=== PATIENT | female | born 1975 | race Caucasian/White ===

== ENCOUNTER 2022-05-07 10:24 | Inpatient (IN) ==
[2022-05-07] MEDS ORDERED: ONDANSETRON 4 MG/2 ML VIAL IV ONE ×2 (11:23→14:53)
--- NOTE | 2022-05-07 11:25 | Emergency Department Note ---
HPI General Chief complaint: Wound/Laceration Stated complaint: leg wound Time Seen by Provider: 05/07/22 11:23 Source: patient Mode of arrival: wheelchair History of Present Illness HPI Narrative: Narrative: Patient is a 46-year-old female with no significant past medical history presents to the emergency department due to pain, swelling, and redness of her right lower extremity. Patient states that approximately 2 weeks ago she was hit by a softball in her right leg. She states that since that time she has had worsening pain and was seen at [facility]. She states that 4 days ago there was concern for infection, so she was placed on Bactrim. She states that she was then seen again and was given a dose of ceftriaxone and then placed on Keflex. She states that she has been on both medications since that time. She states that she had worsening pain and development of swelling in the area, so was seen at [facility] again. Patient was sent here due to concern for worsening despite outpatient therapy. She endorses worsening swelling of the whole right lower leg and not just around the site of erythema. She endorses pain just around the site of erythema. She denies any other symptoms at this time. Related Data Home Medications Medication Instructions Recorded Confirmed folic acid 400 mcg tablet 0.4 mg PO QDAY 11/01/21 03/27/22 melatonin 10 mg capsule 10 mg PO PRN 11/01/21 03/27/22 zolpidem 5 mg tablet (Ambien) 5 mg PO PRN 11/01/21 03/27/22 ascorbic acid (vitamin C) PO QDAY 11/05/21 03/27/22 cholecalciferol (vitamin D3) PO QDAY 11/05/21 03/27/22 hydroxyzine HCl 25 mg tablet 12.5 - 50 mg PO QDAY PRN 11/05/21 03/27/22 mecobalamin (vitamin B12) PO QDAY 11/05/21 03/27/22 Previous Rx's Medication Instructions Recorded ondansetron 4 mg disintegrating 4 mg PO Q6H PRN nausea and 11/05/21 tablet vomiting #30 tabs sumatriptan 20 mg/actuation nasal 20 mg intranasal ONCE PRN migraine 11/05/21 spray headache #6 ea estradiol 0.1 mg/24 hr semiweekly 1 patch transdermal .1 PATCH 2X A 01/10/22 transdermal patch WEEK #8 patches Allergies Allergy/AdvReac Type Severity Reaction Status Date / Time ibuprofen Allergy Unknown Hives, Verified 03/27/22 15:44 Swelling latex Allergy Unknown Hives, Rash Verified 03/27/22 15:44 salicylic acid Allergy Unknown Unknown Verified 03/27/22 15:44 [From Compound W] Review of Systems ROS ROS Narrative: Narrative: Constitutional: Denies fever or weakness Eyes: Denies eye pain or vision change ENT ED: Denies throat pain, hearing loss or rhinorrhea Cardiovascular: Denies chest pain or edema Respiratory: Denies shortness of breath or cough Gastrointestinal: Denies abdominal pain, nausea, vomiting, diarrhea, constipation, hematochezia or melena Musculoskeletal: Denies back pain or myalgia Integumentary: Reports change in color and other (Swelling at site of redness); Denies rash Neurological: Denies headache, weakness, numbness, confusion, abnormal gait or dizziness Endocrine: Denies fatigue or polyuria Hematological/Lymphatic: Denies easy bleeding or easy bruising [facility] Narrative Patient History Narrative: Narrative: Medical/Surgical/Family History All Active Problems (Updated 05/07/22 @ 16:54 by Chris Rossi MD) Cellulitis (Acute) Heat exhaustion (Acute) Excessive vitamin B12 intake (Acute) Elevated liver enzymes (Acute) Low blood pressure reading (Chronic) Medication monitoring encounter (Chronic) Hormone replacement therapy (Chronic) Insomnia (Chronic) History of total hysterectomy (Chronic) History of gastric bypass (Chronic ~2019) Migraines (Chronic) Gastroparesis (Chronic) Osteoarthritis of knees, bilateral (Chronic) Encounter for examination required by Department of Transportation (DOT) (Chronic) Medical History Encounter for examination required by Department of Transportation (DOT) Gastroparesis Migraines Osteoarthritis of knees, bilateral Surgical History History of arthroscopy of left knee 2020, 2018, 2016 History of arthroscopy of right knee (~2015) History of endoscopy (~2019) Upper/Lower History of endoscopy (~2015) Lower History of gastric bypass (~2019) History of laparoscopic cholecystectomy History of total hysterectomy [address] Celine Carcamo Family History Other No pertinent family history Social History Smoking Status: Never smoker Alcohol Intake Frequency: holiday/special occasion only Substance Use: does not use Exam Narrative Narrative: Narrative: General General appearance: Present alert and in no apparent distress; Absent anxious or appears intoxicated Head Head: Present atraumatic and normocephalic Eye Eye: Present PERRL and EOMI; Absent scleral icterus ENT ENT: Present mucous membranes moist; Absent nasal congestion Neck Neck: Present full ROM; Absent tenderness Chest Chest: Present normal inspection and symmetric chest wall rise; Absent tenderness Respiratory Respiratory: Present normal lung sounds bilaterally; Absent respiratory distress or accessory muscle use Cardiovascular Cardiovascular: Present regular rate, normal rhythm and normal heart sounds Adbominal Abdominal: Present soft and normal bowel sounds; Absent distention Extremities Extremities: Present normal inspection, full ROM and tenderness (At site of erythema and swelling of right lower extremity) Back Back: Present normal inspection and full ROM; Absent tenderness Neurological Neurological: Present alert and oriented X3 Psychiatric Psychiatric: Present normal affect and normal mood Skin Skin: Present warm (WNL), dry and erythema (Approximately 10 x 15 cm area on right lower extremity) Course Vital Signs Vital signs: Vital Signs Temperature 98.1 F 05/07/22 10:27 Pulse Rate 74 05/07/22 10:27 Respiratory Rate 18 05/07/22 10:27 Blood Pressure 114/78 05/07/22 10:27 Pulse Oximetry (%) 96 05/07/22 10:27 Oxygen Delivery Method 05/07/22 10:27 Temperature 98.1 F 05/07/22 10:27 Pulse Rate 69 05/07/22 16:01 Respiratory Rate 18 05/07/22 10:27 Blood Pressure 87/41 05/07/22 16:01 Pulse Oximetry (%) 100 05/07/22 16:01 Oxygen Delivery Method 05/07/22 10:27 [facility] MDM Narrative Medical decision making narrative: Narrative: Patient is a 46-year-old female who presents to the emergency department due to concern for cellulitis not responsive to outpatient antibiotic therapy. Patient has ultrasound findings concerning for hematoma. With surrounding erythema and warmth of skin there is concern for infection as well. I attempted to aspirate, but was able to obtain very little aspirate that appeared to be bloody alone. Patient's labs are reassuring. I spoke to Dr. Mark due to concern for infected hematoma. He asked that I speak to the hospitalist team given concern for worsening cellulitis and failure of outpatient therapy. I spoke to Dr. Banuelos who did not feel like a medicine admit given absence of any lab findings was warranted. He asked that I speak to Dr. Mark about outpatient surgery. I spoke to Dr. Mark again who agreed to see patient and evaluate. Dr. Mark saw and evaluated patient and agrees that she needs to be admitted, and states that he will admit patient. Lab Data Result diagrams: 05/07/22 11:42 Labs: Lab Results 05/07/22 05/07/22 05/07/22 Range/Units 11:42 11:42 11:57 WBC 7.0 (4.5-11.0) K/mcL RBC 4.57 (3.59-5.38) M/mcL Hgb 13.6 (11.2-15.7) g/dL Hct 41.3 (34.1-44.9) % POC Hct 44.0 (36-48) MCV 90.4 (80.0-100.0) fL MCH 29.8 (26.0-34.0) pg MCHC 32.9 (31.0-36.0) g/dL RDW 12.7 (11.5-14.5) % Plt Count 299 (140-440) K/mcL MPV 11.1 H (7.4-10.4) fL Immature Gran % (Auto) 0.3 (0.0-0.5) % Neut % (Auto) 73.7 (38.0-78.0) % Lymph % (Auto) 14.5 L (15.5-49.0) % Harney % (Auto) 8.9 (1.0-12.0) % Eos % (Auto) 1.9 (0.0-7.0) % Baso % (Auto) 0.7 (0.0-2.0) % Lymph # (Auto) 1.01 L (1.50-4.80) K/mcL Harney # (Auto) 0.62 (0.10-0.90) K/mcL Eos # (Auto) 0.13 (0.00-0.70) K/mcL Baso # (Auto) 0.05 (0.00-0.30) K/mcL Immature Gran # 0.02 (0.00-0.05) K/mcl Absolute Neutrophils 5.15 (1.80-8.00) K/mcL POC Sodium 138 (133-145) POC Potassium 4.0 (3.3-5.1) POC Chloride 100 (96-108) POC Total CO2 28.0 (22-30) POC BUN 12 (6-20) POC Creatinine 1.1 (0.6-1.2) POC Glucose 96 (70-105) POC WB Ioniz Calcium 1.21 (1.16-1.32) Procalcitonin 0.05 (<0.10) ng/mL Discharge Plan Patient/Caregiver Discharge Instructions Pt seen by FABRIC WORKER/PA only: No Clinical Impression: Cellulitis Instructions: Cellulitis (DC) Patient Disposition: Xfer As Inpt ([facility]) Follow up with: Radha Patrick ARNP [Primary Care Provider] - Prescriptions: No Action estradiol 0.1 mg/24 hr patch semiweekly 1 patch transdermal .1 PATCH 2X A WEEK Qty: 8 4RF zolpidem [Ambien] 5 mg tablet 5 mg PO PRN folic acid 400 mcg tablet 0.4 mg PO QDAY melatonin 10 mg capsule 10 mg PO PRN ascorbic acid (vitamin C) PO QDAY Rx Instructions: 125mcg dropperful cholecalciferol (vitamin D3) PO QDAY Rx Instructions: 125mcg dropperful mecobalamin (vitamin B12) PO QDAY Rx Instructions: 125mcg dropperful hydroxyzine HCl 25 mg tablet 12.5 - 50 mg PO QDAY PRN Rx Instructions: for anxiety and insomnia sumatriptan 20 mg/actuation spray,non-aerosol 20 mg intranasal ONCE PRN (Reason: migraine headache) Qty: 6 2RF Rx Instructions: administer into one nostril as a single dose ondansetron 4 mg tablet,disintegrating 4 mg PO Q6H PRN (Reason: nausea and vomiting) Qty: 30 2RF
[2022-05-07 12:03] LABS: POC Calcium, Ionized 1.21 (1.16-1.32); POC Creatinine 1.1 (0.6-1.2)
--- NOTE | 2022-05-07 13:18 | Ultrasound Report ---
History: Hit by a softball in the right lower leg two weeks ago with right leg pain and swelling FINDINGS: There is normal augmentation and compressibility of the deep veins and saphenous vein from the groin through the calf. Doppler shows normal waveform patterns. Anteriorly in the mid portillo beneath the skin lesion there is a complex irregularly shaped collection of fluid which measures 1.5 x 4.9 x 5.9 cm. It contains internal septations and some echogenic debris. Doppler shows the peripheral border is not hypervascular. Incidentally noted is a lymph node in the right groin with benign features which measures 0.8 x 2.2 x 3.3 cm. IMPRESSION: No evidence of deep venous thrombosis Moderate size subcutaneous fluid collection in the portillo. This is probably a hematoma. An infected hematoma cannot be ruled out but there is no hyperemia. Dr. Rossi was called with the report Interpreted and Authenticated by: Rah Le 05/07/22
[2022-05-07] MEDS ORDERED: VANCOMYCIN 1,500 MG in 0.9 % SODIUM CHLORIDE 500 ML IV ONE (13:43)
[2022-05-07 14:54] LABS: Basophils # (Auto) 0.05 K/mcL (0.00-0.30); Basophils % (Auto) 0.7 % (0.0-2.0); Eosinophils # (Auto) 0.13 K/mcL (0.00-0.70); Eosinophils % (Auto) 1.9 % (0.0-7.0); Hematocrit 41.3 % (34.1-44.9); Hemoglobin 13.6 g/dL (11.2-15.7); Lymphocytes # (Auto) 1.01 K/mcL (1.50-4.80); Lymphocytes % (Auto) 14.5 % (15.5-49.0); Mean Cell Volume 90.4 fL (80.0-100.0); Mean Corpuscular HGB Conc 32.9 g/dL (31.0-36.0); Mean Platelet Volume 11.1 fL (7.4-10.4); Monocytes # (Auto) 0.62 K/mcL (0.10-0.90); Monocytes % (Auto) 8.9 % (1.0-12.0); Neutrophils % (Auto) 73.7 % (38.0-78.0); Platelet Count 299 K/mcL (140-440); RBC 4.57 M/mcL (3.59-5.38); Red Cell Distribution Width 12.7 % (11.5-14.5)
--- NOTE | 2022-05-07 17:01 | General Surgery Consult Note ---
HPI Data of Consult Patient: new to practice Consult date: 05/07/22 Requesting physician: Chris Rossi Primary Care Provider: JOSSE Bedlola Consult Narrative Chief complaint: Right Pretibial Hematoma Reason for consult: Above History of present illness: Ingrid is seen in consultation tonight several weeks out now from a Trauma to the Right Pretibial Region while playing Softball. She immediately developed pain and swelling and underwent initial plain films that per her did not show any evidence of fracture. She began to develop increasing pain in the area and increasing redness. She was initially started on oral ABs 4 days about but without improvement and the ABs were changed after roughly 48 hours or so. She is back today with no real improvement. There has not been significant draina ge. An US demonstrated findings consistent with hematoma and attempts at aspiration were significant for only a few cc's of benign appearing blood - there was no noted purulence. cc:: CC: Review of Systems Review of systems: ROS ROS Narrative: Narrative: Constitutional: Denies fever or weakness Eyes: Denies eye pain or vision change ENT ED: Denies throat pain, hearing loss or rhinorrhea Cardiovascular: Denies chest pain or edema Respiratory: Denies shortness of breath or cough Gastrointestinal: Denies abdominal pain, nausea, vomiting, diarrhea, cons tipation, hematochezia or melena Musculoskeletal: Denies back pain or myalgia Integumentary: Reports change in color and other (Swelling at site of redness); Denies rash Neurological: Denies headache, weakness, numbness, confusion, abnormal gait or dizziness Endocrine: Denies fatigue or polyuria Hematological/Lymphatic: Denies easy bleeding or easy bruising [facility] Narrative Patient History Narrative: Narrative: Medical/Surgical/Family History All Active Problems(Updated 05/07/22 @ 16:54 by Chris Rossi MD) Cellulitis (Acute) Heat exhaustion (Acute) Excessive vitamin B12 intake (Acute) Elevated liver enzymes (Acute) Low blood pressure reading (Chronic) Medication monitoring encounter (Chronic) Hormone replacement therapy (Chronic) Insomnia (Chronic) History of total hysterectomy (Chronic) History of gastric bypass (Chronic ~2019) Migraines (Chronic) Gastroparesis (Chronic) Osteoarthritis of knees, bilateral (Chronic) Encounter for examination required by Department of Transportation (DOT) (Chronic) Medical History Encounter for examination required by Department of Transportation (DOT) Gastroparesis Migraines Osteoarthritis of knees, bilateral Surgical History History of arthroscopy of left knee 2020, 2018, 2016History of arthroscopy of right knee (~2015) History of endoscopy (~2019) Upper/LowerHistory of endoscopy (~2015) LowerHistory of gastric bypass (~2019) History of laparoscopic cholecystectomy History of total hysterectomy [address] Celine Carcamo Family History Other No pertinent family history PFSH PFSH All Active Problems (Updated 05/07/22 @ 16:54 by Chris Rossi MD) Cellulitis (Acute) Heat exhaustion (Acute) Excessive vitamin B12 intake (Acute) Elevated liver enzymes (Acute) Low blood pressure reading (Chronic) Medication monitoring encounter (Chronic) Hormone replacement therapy (Chronic) Insomnia (Chronic) History of total hysterectomy (Chronic) History of gastric bypass (Chronic ~2019) Migraines (Chronic) Gastroparesis (Chronic) Osteoarthritis of knees, bilateral (Chronic) Encounter for examination required by Department of Transportation (DOT) (Chronic) Medical History Encounter for examination required by Department of Transportation (DOT) Gastroparesis Migraines Osteoarthritis of knees, bilateral Surgical History History of arthroscopy of left knee 2020, 2018, 2016 History of arthroscopy of right knee (~2015) History of endoscopy (~2019) Upper/Lower History of endoscopy (~2015) Lower History of gastric bypass (~2019) History of laparoscopic cholecystectomy History of total hysterectomy [address] Celine Carcamo Family History Other No pertinent family history Social History marital status: occupational status: employed occupation: [employer] smoking status: Never smoker alcohol intake frequency: holiday/special occasion only substance use type: does not use MEDS/ALLERGIES Home Medications and Allergies Home Medications Medication Instructions Recorded Confirmed Type folic acid 400 mcg tablet 0.4 mg PO QDAY 11/01/21 03/27/22 History melatonin 10 mg capsule 10 mg PO PRN 11/01/21 03/27/22 History zolpidem 5 mg tablet (Ambien) 5 mg PO PRN 11/01/21 03/27/22 History ascorbic acid (vitamin C) PO QDAY 11/05/21 03/27/22 History cholecalciferol (vitamin D3) PO QDAY 11/05/21 03/27/22 History hydroxyzine HCl 25 mg tablet 12.5 - 50 mg PO QDAY PRN 11/05/21 03/27/22 History mecobalamin (vitamin B12) PO QDAY 11/05/21 03/27/22 History ondansetron 4 mg disintegrating 4 mg PO Q6H PRN nausea and 11/05/21 03/27/22 Rx tablet vomiting #30 tabs sumatriptan 20 mg/actuation nasal 20 mg intranasal ONCE PRN migraine 11/05/21 03/27/22 Rx spray headache #6 ea estradiol 0.1 mg/24 hr semiweekly 1 patch transdermal .1 PATCH 2X A 01/10/22 03/27/22 Rx transdermal patch WEEK #8 patches Allergies Allergy/AdvReac Type Severity Reaction Status Date / Time ibuprofen Allergy Unknown Hives, Verified 03/27/22 15:44 Swelling latex Allergy Unknown Hives, Rash Verified 03/27/22 15:44 salicylic acid Allergy Unknown Unknown Verified 03/27/22 15:44 [From Compound W] Physical Examination Vital Signs Vital signs: Temp Pulse Resp BP Pulse Ox O2 Del Method 98.1 F 69 18 87/41 100 05/07/22 10:27 05/07/22 16:01 05/07/22 10:27 05/07/22 16:01 05/07/22 16:01 05/07/22 10:27 General physical appearance General physical exam: other (looks non toxic ) Eyes Eye exam: normal ocular movement; negative icteric ENT ENT exam: normal pinna and normal nares Head Head exam IM: Present atraumatic, normal inspection and normocephalic Neck Neck exam: trachea midline, no lymphadenopathy and other Cardiovascular Cardiovascular exam IM: Present normal rate and rhythm and RRR Respiratory Respiratory exam: normal respiratory effort Abdomen Abdomen: Present soft and non tender Integumentary Integumentary: Present other (normal appearing intact skin ) Neurologic Neurologic: Present other (grossly intact) Musculoskeletal Musculoskeletal: Present other (in the Right Pretibial region there is a 3-4 cm centralized area of swelling with patches of overlying dermal necrosis and some surrounding erythema, there is no drainage and the area is minimally tender ) Results Labs Result diagrams: 05/07/22 11:42 Labs: Abnormal lab results 05/07/22 Range/Units 11:42 MPV 11.1 H (7.4-10.4) fL Lymph % (Auto) 14.5 L (15.5-49.0) % Lymph # (Auto) 1.01 L (1.50-4.80) K/mcL All other labs normal. A/P Assessment and plan (1) Cellulitis: Assessment and plan: Right Pretibial Hematoma with overlying skin breakdown and surrounding cellulitis The area looks like it will require operative debridement to drain the hematoma, remove any areas of necrotic tissue, obtain cultures and pursue open wound care Issues are discussed at length and she is agreeable to the plan for admission tonight Risks, benefits, potential complications and alternative treatment options are all reviewed and discussed at length Status: Acute Time Spent With Patient Time: Total time spent is greater than 50% in coordination of care (as documented) at patient's floor/unit and/or counseling patient:
[2022-05-07] MEDS: DEXTROSE 5%-1/2NS 1,000 ML IV SCH (20:25)
[2022-05-07] MEDS: 0.9 % SODIUM CHLORIDE 10 ML SYRINGE IV SCH (20:26)
[2022-05-07] MEDS: DOCUSATE SODIUM 100 MG CAPSULE PO SCH (20:26)
[2022-05-07] MEDS: SENNOSIDES 1 TABLET PO SCH (20:26)
[2022-05-07] MEDS: oxyCODONE HCL 5 MG TABLET PO PRN (20:26)
[2022-05-07] MEDS: PIPERACILLIN SODIUM/TAZOBACTAM 3.375 GM in DEXTROSE 5% IN WATER 50 ML IV SCH (20:56)
[2022-05-08] MEDS: oxyCODONE HCL 5 MG TABLET PO PRN ×3 (00:57→21:21)
[2022-05-08] MEDS: PIPERACILLIN SODIUM/TAZOBACTAM 3.375 GM in DEXTROSE 5% IN WATER 50 ML IV SCH ×4 (01:00→18:01)
[2022-05-08] MEDS: ONDANSETRON 4 MG/2 ML VIAL IV PRN ×3 (01:34→21:31)
[2022-05-08] MEDS: DEXTROSE 5%-1/2NS 1,000 ML IV SCH ×4 (02:50→15:16)
[2022-05-08] MEDS ORDERED: IPRATROPIUM/ALBUTEROL 3 ML AMPUL.NEB NEB PRN ×2 (05:00→11:17)
[2022-05-08] MEDS ORDERED: SCOPOLAMINE 1 PATCH PATCH TOPICAL PRN (05:00)
[2022-05-08 06:45] LABS: Hematocrit 36.4 % (34.1-44.9); Hemoglobin 12.1 g/dL (11.2-15.7); Mean Cell Volume 89.4 fL (80.0-100.0); Mean Corpuscular HGB Conc 33.2 g/dL (31.0-36.0); Mean Platelet Volume 10.9 fL (7.4-10.4); Platelet Count 271 K/mcL (140-440); RBC 4.07 M/mcL (3.59-5.38); Red Cell Distribution Width 12.6 % (11.5-14.5)
[2022-05-08 07:18] LABS: Blood Urea Nitrogen 12 mg/dL (6-20); Calcium 8.7 mg/dL (8.6-10.4); Carbon Dioxide 28 mmol/L (22-30); Chloride 103 mmol/L (96-108); Glomerular Filtration Rate 67; Glucose 108 mg/dL (70-105)
[2022-05-08] MEDS: DOCUSATE SODIUM 100 MG CAPSULE PO SCH ×2 (09:00→21:20)
[2022-05-08] MEDS: 0.9 % SODIUM CHLORIDE 10 ML SYRINGE IV SCH ×3 (09:46→21:04)
[2022-05-08] MEDS ORDERED: LIDOCAINE HCL/PF 100 MG/5 ML SYRINGE IV ONE (10:56)
[2022-05-08] MEDS ORDERED: MAGNESIUM SULFATE 2 GM/50 ML BAG IV ONE (10:56)
[2022-05-08] MEDS ORDERED: FAMOTIDINE/PF 20 MG/2 ML VIAL IV ONE (10:56)
[2022-05-08] MEDS ORDERED: MIDAZOLAM 2 MG/2 ML VIAL ONE (10:56)
[2022-05-08] MEDS ORDERED: ePHEDrine 50 MG/5 ML SYRINGE (ANEST) IV ONE (10:56)
[2022-05-08] MEDS ORDERED: GLYCOPYRROLATE 0.2 MG/ML VIAL IV ONE (10:56)
[2022-05-08] MEDS ORDERED: KETAMINE 50 MG/ML Syringe (ANEST) IV ONE (10:56)
[2022-05-08] MEDS ORDERED: ONDANSETRON 4 MG/2 ML VIAL ONE (10:56)
[2022-05-08] MEDS ORDERED: KETOROLAC 30 MG/ML VIAL ONE (10:56)
[2022-05-08] MEDS ORDERED: PROPOFOL 200 MG/20 ML VIAL IV ONE (10:56)
[2022-05-08] MEDS ORDERED: METHOCARBAMOL 1,000 MG/10 ML VIAL IV PRN (11:17)
[2022-05-08] MEDS ORDERED: diphenhydrAMINE 50 MG/ML VIAL IV PRN (11:17)
[2022-05-08] MEDS ORDERED: NALOXONE HCL 0.4 MG/ML VIAL IV PRN (11:17)
[2022-05-08] MEDS ORDERED: LACTATED RINGERS 250 ML IV PRN (11:17)
[2022-05-08] MEDS ORDERED: FLUMAZENIL 0.1 MG/ML ML IV PRN (11:17)
[2022-05-08] MEDS ORDERED: ACETAMINOPHEN 1,000 MG/100 ML BAG IV ONE (11:17)
[2022-05-08] MEDS ORDERED: fentaNYL 100 MCG/2 ML VIAL IV PRN (11:17)
[2022-05-08] MEDS ORDERED: PROMETHAZINE 25 MG/ML VIAL IV PRN (11:17)
[2022-05-08] MEDS ORDERED: METOCLOPRAMIDE 10 MG/2 ML VIAL IV PRN (11:17)
[2022-05-08] MEDS ORDERED: MEPERIDINE 50 MG/ML VIAL IM PRN (11:17)
[2022-05-08] MEDS ORDERED: MEPERIDINE 25 MG/ML VIAL IV PRN (11:17)
[2022-05-08] MEDS ORDERED: ATROPINE SULFATE 0.4 MG/ML VIAL IV PRN (11:17)
[2022-05-08] MEDS ORDERED: PROMETHAZINE 25 MG/ML VIAL IM PRN (11:17)
[2022-05-08] MEDS ORDERED: ePHEDrine 50 MG/ML AMPUL IV PRN (11:17)
[2022-05-08] MEDS ORDERED: LACTATED RINGERS 1,000 ML IV SCH (11:30)
--- NOTE | 2022-05-08 11:34 | Brief Operative Note ---
Brief Operative Note Date of procedure: 05/08/22 Pre-op diagnosis: Infected Right Pretibial Hematoma with overlying Dermal Necr osis Post-op diagnosis: same Procedure: Evacuation Infected Right Pretibial Hematoma with Incision, Drainage and Open Debridement Grafts/Implants: No Anesthesia: GETA Findings: Moderate Sized Infected Right Pretibial Hematoma with overlying Dermal Necrosis Complications: none Surgeon: Jt Mark Estimated blood loss (cc): 5 Specimens Removed/Pathology: other (Fluid For Gram Stain and Culture, Overlying Necrotic Skin to pathology ) Condition: stable Disposition: PACU
[2022-05-08] MEDS: ACETAMINOPHEN 325 MG TABLET PO PRN (14:31)
[2022-05-08] MEDS: SENNOSIDES 1 TABLET PO SCH (21:21)
[2022-05-09] MEDS: PIPERACILLIN SODIUM/TAZOBACTAM 3.375 GM in DEXTROSE 5% IN WATER 50 ML IV SCH ×4 (00:11→18:04)
[2022-05-09] MEDS: DEXTROSE 5%-1/2NS 1,000 ML IV SCH (03:27)
[2022-05-09] MEDS: oxyCODONE HCL 5 MG TABLET PO PRN ×3 (03:27→21:36)
[2022-05-09] MEDS: 0.9 % SODIUM CHLORIDE 10 ML SYRINGE IV SCH ×3 (05:34→21:37)
[2022-05-09] MEDS: ACETAMINOPHEN 325 MG TABLET PO PRN (07:39)
[2022-05-09] MEDS: ONDANSETRON 4 MG/2 ML VIAL IV PRN (07:39)
[2022-05-09] MEDS: DOCUSATE SODIUM 100 MG CAPSULE PO SCH ×2 (09:08→21:28)
[2022-05-09] MEDS: FOLIC ACID 1 MG TABLET PO SCH (09:09)
[2022-05-09] MEDS: HYDROmorphone 0.5 MG/0.5 ML SYRINGE IV PRN ×2 (13:49→18:03)
[2022-05-09] MEDS: SENNOSIDES 1 TABLET PO SCH (21:28)
[2022-05-10] MEDS: HYDROmorphone 0.5 MG/0.5 ML SYRINGE IV PRN (00:55)
[2022-05-10] MEDS: PIPERACILLIN SODIUM/TAZOBACTAM 3.375 GM in DEXTROSE 5% IN WATER 50 ML IV SCH ×3 (00:59→12:27)
[2022-05-10] MEDS: 0.9 % SODIUM CHLORIDE 10 ML SYRINGE IV SCH ×2 (05:35→14:12)
[2022-05-10] MEDS: FOLIC ACID 1 MG TABLET PO SCH (08:44)
[2022-05-10] MEDS: DOCUSATE SODIUM 100 MG CAPSULE PO SCH (08:50)
--- NOTE | 2022-05-10 08:55 | General Surgery Progress Note ---
SUBJECTIVE Subjective Patient information: Note initiated : 05/10/22 at 8:52 am Service Date, if different from initiated Date: [05/09/22 @ 1155am] Patient: Ingrid Belcher 46 y/o F admitted on 05/07/22 for leg wound. Chief Complaint: [] Wound check and dressing change. Feels well, minimal pain, discussing Home Wound VAC which she would prefer Constitutional Vitals: Vital Signs Temp Pulse Resp BP Pulse Ox O2 Del Method O2 Flow Rate 98.7 F 70 16 88/54 94 6 05/10/22 07:26 05/09/22 18:02 05/10/22 07:26 05/10/22 07:26 05/10/22 07:26 05/10/22 07:05/08/22 12:07 Period Temp Pulse Resp BP Sys/Pruett Pulse Ox O2 Del Method O2 Flow Rate Last 24 Hr 98.0 F-98.7 F 66-70 16 88-106/54-59 94-96 Room Air-Room Air Intake and Output 05/09/22 05/10/22 05/10/22 21:59 05:59 13:59 Intake Total 790 530 50 Output Total 1000 1250 Balance -210 -720 50 Weight 164 lb Intake & Output: Intake & Output 05/09/22 05/10/22 05/10/22 21:59 05:59 13:59 Intake Total 790 530 50 Output Total 1000 1250 Balance -210 -720 50 Weight 164 lb Intake: IV 50 50 50 Zosyn 3.375 gm In Dextrose 5% 50 50 50 in Water 50 ml @ 100 mls/hr IV Q6H [facility] Rx#:[id number] Oral 740 480 Output: Void Amount 1000 1250 Other: Meal Dinner Percent of Meal Consumed 25% Urine Appearance Clear Clear Urine Color Yellow Yellow Exam: she looks well, NAD Respiratory Respiratory exam: Present normal respiratory exam Cardiovascular Cardiovascular exam: Present normal rate and rhythm and RRR Extremities Exam Additional comments: The Right Pretibial wound looks clean with some oozing, wound is re dressed and wrapped at this time A/P Assessment and plan (1) Cellulitis: Assessment and plan: Right Pretibial Wound Doing Well VAC and possibly home tomorrow (05/10) Status: Acute Time Spent With Patient Time: Total time spent is greater than 50% in coordination of care (as documented) at patient's floor/unit and/or counseling patient:
--- NOTE | 2022-05-10 15:33 | General Surgery Progress Note ---
SUBJECTIVE Subjective Patient information: Note initiated : 05/10/22 at 3:31 pm Service Date, if different from initiated Date: [] Patient: Ingrid Belcher 46 y/o F admitted on 05/07/22 for leg wound. Chief Complaint: [] Feels well, VAC in place, ok for home Constitutional Vitals: Vital Signs Temp Pulse Resp BP Pulse Ox O2 Del Method O2 Flow Rate 99 F 70 20 102/65 98 6 05/10/22 12:00 05/09/22 18:02 05/10/22 12:00 05/10/22 12:00 05/10/22 12:00 05/10/22 12:00 05/08/22 12:07 Period Temp Pulse Resp BP Sys/Pruett Pulse Ox O2 Del Method O2 Flow Rate Last 24 Hr 98.0 F-99 F 70 16-20 88-102/54-65 94-98 Room Air-Room Air Intake and Output 05/10/22 05/10/22 05/10/22 05:59 13:59 21:59 Intake Total 530 100 Output Total 1250 Balance -720 100 Intake & Output: Intake & Output 05/10/22 05/10/22 05/10/22 05:59 13:59 21:59 Intake Total 530 100 Output Total 1250 Balance -720 100 Intake: IV 50 100 Zosyn 3.375 gm In Dextrose 5% 50 100 in Water 50 ml @ 100 mls/hr IV Q6H [facility] Rx#:[id number] Oral 480 Output: Void Amount 1250 Other: Urine Appearance Clear Urine Color Yellow Exam: Looks well, NAD Respiratory Respiratory exam: Present normal respiratory exam Cardiovascular Cardiovascular exam: Present normal rate and rhythm and RRR GI/Abdominal Additional comments: soft and non tender, non distended, Extremities Exam Additional comments: VAC in place A/P Assessment and plan (1) Cellulitis: Assessment and plan: Post I&D Right Leg Infected Pretibial Hematoma Doing Well Home Today with VAC Clinic follow up next week Status: Acute Time Spent With Patient Time: Total time spent is greater than 50% in coordination of care (as documented) at patient's floor/unit and/or counseling patient:
--- NOTE | 2022-05-20 15:28 | Operative Note ---
DATE OF OPERATION: 05/08/2022 DATE OF PROCEDURE: 05/08/2022 PREOPERATIVE DIAGNOSIS: Infected right pretibial hematoma. POSTOPERATIVE DIAGNOSIS: Infected right pretibial hematoma. OPERATIVE PROCEDURE: Incision and drainage of infected right pretibial hematoma with debridement, washout and dressing placement. SIZE OF AREA: The debrided area of necrotic skin overlying the hematoma was 2.5 by 2.5 cm with a depth of 1.5cm SURGEON: Jt Mark M.D. ANESTHESIA: General. PREOPERATIVE MEDICATIONS: Zosyn 3.375 g IV. INDICATIONS: The patient is a 46-year-old female who presented to the Emergency Room yesterday, some period of time after observing some trauma in the form of a hit softball to her right pretibial region. She developed a significant hematoma at that time and over the course of several weeks, she developed necrosis over the site and subsequent infection and cellulitis. We were asked to see her in consultation and recommended admission for IV antibiotics followed by progression to the operating room for incision, drainage and debridement, washout and dressing placement. Risks, benefits, potential complications, and alternative treatment options were all discussed at length. These include, but are not limited to bleeding, infection, cosmetic dissatisfaction, abnormal scarring, the need for an open wound, the potential need for inpatient wound care, VAC placement and other issues as well as the potential for nonhealing and just a prolonged course of recuperating from this. We did not feel there were really substantial alternative treatment options given the fact that she had necrosis over the wound, but there was a full discussion of risks, benefits, potential complications, and alternative treatment options. DESCRIPTION OF PROCEDURE: The patient was taken to the OR and placed supine on the OR table, placed under general anesthesia and intubated. Bilateral SCDs were applied. All pressure sensitive areas were carefully padded. The right pretibial region was widely prepped and draped in a sterile fashion. Procedure began with removal of a roughly 2.5 x 2.5 cm section of necrotic skin directly over the central aspect of the hematoma. It was removed in its entirety using primarily sharp dissection. We then encountered a substantial underlying hematoma. Cultures were taken and sent to the lab and then the area was evacuated out, washed out extensively and some light superficial debridement was done. The surrounding skin otherwise all appeared to be intact. The wound was then packed and dressed, and wrapped and this completed the procedure. ESTIMATED BLOOD LOSS: Roughly 10 mL. DRAINS: None. FINDINGS: As discussed above. CONDITION: The patient tolerated the procedure well. BW:adore Job ID: [id number] Doc ID: [id number] Jt Mark M.D. MTDChristian
== END 2022-05-10 15:44 | disposition home or self-care (01) | DRG 603 ==
LOC: ED 10:24 → MEDSUR 19:38
PROVIDERS: ADMIT Surgery Surgical Critical Care; ATTEND Surgery Surgical Critical Care